=== PATIENT | female | born 1950 | race Caucasian/White ===

== ENCOUNTER 2017-04-01 23:29 | Inpatient (IN) | payer MEDICARE, MEDICAID ==
[2017-04-01 23:29] VITALS: BMI 33.6
--- NOTE | 2017-04-02 00:43 | ED PDOC ---
HPI: Skin/Bite Injury Time Seen by Provider: 04/01/17 23:50 Chief Complaint (Nursing): Abnormal Skin Integrity Chief Complaint (Provider): Left forehead and facial rash History Per: Patient History/Exam Limitations: no limitations Onset/Duration Of Symptoms: Days ( 5 days) Location Of Injury: Left: Head (Left forehead rash), Anterior: Face (Facial rash ) Quality Of Symptoms: Painful, Itching, Other (Burning) Additional Complaint(s): Mariama Lea, a 66 year old female, presents to the ED with a rash to the left periorbital region and left forehead. The patient describes the rash as having a painful, itchy, burning sensation. She states that she initially thought it may have been an allergic reaction, but the worsening nature of discomfort caused her to come into the ER. Patient denies associated headache, nausea, shortness of breath and chest pain. Also denies changes in vision. Past Medical History Reviewed: Historical Data, Nursing Documentation, Vital Signs Vital Signs: Last Vital Signs Temp 98.3 F 04/02/17 03:30 Pulse 82 04/02/17 03:30 Resp 19 04/02/17 03:30 BP 146/76 04/02/17 03:30 Pulse Ox 99 04/02/17 04:22 - Medical History PMH: Diabetes, Fractures (right arm), HTN, Hypercholesterolemia Denies: Colonic Polyps, Chronic Kidney Disease Comment Only: Cardia Arrhythmia (OCASSIONAL PALPITATIONS) - Surgical History Other surgeries: Left elbow surgery, Breast Cyst removal surgery, Foot surgery. - Family History Family History: States: Unknown Family Hx - Home Medications Home Medications: Ambulatory Orders Medication Instructions Recorded Aspirin [Ecotrin] 81 mg PO DAILY 04/02/17 Empagliflozin [Jardiance] 10 mg PO DAILY 04/02/17 GlipiZIDE [Glucotrol] 5 mg PO DAILY 04/02/17 Linagliptin [Tradjenta] 5 mg PO DAILY 04/02/17 Linagliptin/Metformin HCl 1 tab PO DAILY 04/02/17 [Jentadueto Xr 5 mg-1,000 mg Tb] Losartan/Hydrochlorothiazide 1 tab PO DAILY 04/02/17 [Losartan-Hctz 100-12.5 mg Tab] Metoprolol Succinate [Metoprolol 200 mg PO DAILY 04/02/17 Succinate] Simvastatin [Simvastatin] 10 mg PO DAILY 04/02/17 - Allergies Allergies/Adverse Reactions: Allergies Allergy/AdvReac Type Severity Reaction Status Date / Time No Known Allergies Allergy Verified 01/11/16 08:09 Review of Systems ROS Statement: Except As Marked, All Systems Reviewed And Found Negative Eyes: Negative for: Vision Change Cardiovascular: Negative for: Chest Pain Respiratory: Negative for: Shortness of Breath Gastrointestinal: Negative for: Nausea, Vomiting Skin: Positive for: Rash (Left periorbital and left forehead rash(describes as pain, burning, itching)) Physical Exam - Reviewed Nursing Documentation Reviewed: Yes Vital Signs Reviewed: Yes - Physical Exam Appears: Positive for: Non-toxic, No Acute Distress Head Exam: Positive for: ATRAUMATIC, NORMAL INSPECTION (left foreheard erythema with small vesicles, C2 distribution.), NORMOCEPHALIC Skin: Positive for: Normal Color, Warm, Dry Eye Exam: Positive for: Normal appearance, EOMI, PERRL, Other (left periorital erythema with small vesicles, C2 distribution.) ENT: Positive for: Normal ENT Inspection Neck: Positive for: Normal, Painless ROM, Supple Cardiovascular/Chest: Positive for: Regular Rate, Rhythm, Chest Non Tender. Negative for: Tachycardia Respiratory: Positive for: Normal Breath Sounds. Negative for: Wheezing, Respiratory Distress Gastrointestinal/Abdominal: Positive for: Normal Exam, Soft. Negative for: Tenderness Back: Positive for: Normal Inspection. Negative for: L CVA Tenderness, R CVA Tenderness Extremity: Positive for: Normal ROM. Negative for: Tenderness, Deformity, Swelling Neurologic/Psych: Positive for: Alert, Oriented - Laboratory Results Result Diagrams: 04/02/17 00:40 04/02/17 00:40 - ECG O2 Sat by Pulse Oximetry: 99 (RA) Pulse Ox Interpretation: Normal Medical Decision Making Medical Decision Makin:50 Initial impression: 66 year old female presenting with shingles. Initial plan: * EKG * CMP * Lactic acid * CBC * PTT * Prothrombin time * CXR * Morphine 2mg IVP * Zovirax 500mg inj * Blood culture * Isolation type Q12 * Admit to hospital 0014 Fluorescein stain applied to left eye, no dendritic lesions observed. 0014 Patient will be admitted due to possible ocular/ ophthalmic involvement. Case was discussed with Dr. funes admitting hospitalist for Dr. Peralta - Scribe Attestation Documented by Jenn Arciniega acting as a scribe for Aquilino Rosales MD. Provider Attestation All medical record entries made by the Scribe were at my direction and personally dictated by me. I have reviewed the chart and agree that the record accurately reflects my personal performance of the history, physical exam, medical decision making, and the department course for this patient. I have also personally directed, reviewed, and agree with the discharge instructions and disposition Disposition - Clinical Impression Clinical Impression: Herpes zoster - Patient ED Disposition Is Patient to be Admitted: Yes Discussed With : Juli Funes Counseled Patient/Family Regarding: Studies Performed, Diagnosis - Disposition Disposition Time: 00:14 Condition: FAIR - Pt Status Changed To: Hospital Disposition Of: Inpatient - Admit Certification Admit to Inpatient:: After my assessment, the patient will require hospitalization for at least two midnights. This is because of the severity of symptoms shown, intensity of services needed, and/or the medical risk in this patient being treated as an outpatient.
[2017-04-02 00:51] LABS: BASO % 0.6 % (0.0-2.0); EOS # 0.1 K/uL (0.0-0.7); EOS % 1.4 % (0.0-4.0); HEMATOCRIT 39.8 % (34.0-47.0); LYMPH # 1.3 K/uL (1.0-4.3); LYMPH % 21.2 % (20.0-40.0); MEAN CELL VOLUME 92.3 fl (81.0-99.0); MEAN CORPUSCULAR HEMOGLOBIN 30.3 pg (27.0-31.0); MEAN CORPUSCULAR HGB CONC 32.8 g/dL (33.0-37.0); MEAN PLATELET VOLUME 8.6 fl (7.2-11.7); MONO # 0.6 K/uL (0.0-0.8); MONO % 8.9 % (0.0-10.0); NEUT # 4.2 K/uL (1.8-7.0); NEUT % 67.9 % (50.0-75.0); NRBC % 0.1 % (0.0-0.0); RED CELL DISTRIBUTION WIDTH 13.6 % (11.5-14.5); WHITE BLOOD COUNT 6.2 K/uL (4.8-10.8)
[2017-04-02 01:01] LABS: ALB/GLOB RATIO 1.1 (1.0-2.1); ALKALINE PHOSPHATASE 92 U/L (38-126); ALT/SGPT 25 U/L (9-52); AST/SGOT 21 U/L (14-36); BILIRUBIN,TOTAL 0.3 mg/dl (0.2-1.3); BLOOD UREA NITROGEN 21 mg/dl (7-17); CALCIUM 9.1 mg/dL (8.4-10.2); CARBON DIOXIDE 29 mmol/L (22-30); CHLORIDE 98 mmol/L (98-107); GFR AFRICAN-AMERICAN > 60; GLUCOSE,RANDOM 262 mg/dL (65-105); POTASSIUM 4.1 MMOL/L (3.6-5.0); SODIUM 137 mmol/l (132-148); TOTAL PROTEIN 8.2 G/DL (6.3-8.2)
[2017-04-02 01:03] LABS: PARTIAL THROMBOPLASTIN TIME 27.6 SECONDS (23.3-32.5)
--- NOTE | 2017-04-02 01:31 | CP.PCM.HP ---
History of Present Illness - History of Present Illness History of Present Illness: CC: Facial/periorbital shingles HPI: This is a 66 y/o female with MHx significant for DM2, HTN, HLD among other conditions who comes in essentially with L facial (Perorbital/forehead) shingles. It has been there for several days, she initially thought it was an allergy, but it did not improve. There is pain/itching. Nothing makes it better. Her vision is not affected. She denies any large amount of purulence or drainage in the area. She does have a RAMSEY on L side of head. ROS: 14 systems reviewed, negative other than HPI MHx: DM2, HTN, HLD SHx: L elbow surgery, foot surgery, breast cyst surgery Allergies: NKDA Medications: as per med rec Family Hx: no relevant findings Social Hx: no significant EtOH or tobacco Surrogate Dec Mkr: daughter, info on chart Present on Admission - Present on Admission Any Indicators Present on Admission: No Past Patient History - Past Medical History & Family History Past Medical History?: Yes - Past Social History Smoking Status: Never Smoked - CARDIAC Hx Cardia Arrhythmia: (OCASSIONAL PALPITATIONS) Hx Hypercholesterolemia: Yes Hx Hypertension: Yes - PULMONARY Hx Respiratory Disorders: No - NEUROLOGICAL Hx Neurological Disorder: No - HEENT Hx HEENT Problems: Yes - RENAL Hx Chronic Kidney Disease: No - ENDOCRINE/METABOLIC Hx Endocrine Disorders: Yes Hx Diabetes Mellitus Type 2: Yes - HEMATOLOGICAL/ONCOLOGICAL Hx Blood Disorders: No - INTEGUMENTARY Hx Dermatological Problems: No - MUSCULOSKELETAL/RHEUMATOLOGICAL Hx Fractures: Yes (right arm) - GASTROINTESTINAL Hx Gastrointestinal Disorders: No - GENITOURINARY/GYNECOLOGICAL Hx Genitourinary Disorders: No - PSYCHIATRIC Hx Psychophysiologic Disorder: No Hx Substance Use: No - SURGICAL HISTORY Hx Surgeries: Yes Hx Open Reduction Internal Fixation: Yes (right arm) Hx Tubal Ligation: Yes Other/Comment: repair right arm fx; RIGHT FOOT 5TH TOE; CYST REMOVED RIGHT BREAST - ANESTHESIA Hx Anesthesia: Yes Hx Anesthesia Reactions: No Hx Malignant Hyperthermia: No Meds Allergies/Adverse Reactions: Allergies Allergy/AdvReac Type Severity Reaction Status Date / Time No Known Allergies Allergy Verified 01/11/16 08:09 Physical Exam - Constitutional Appears: No Acute Distress - Head Exam Head Exam: ATRAUMATIC, NORMOCEPHALIC Additional comments: Rash on L face, dermatomal distribution - Eye Exam Eye Exam: EOMI, PERRL - ENT Exam ENT Exam: Mucous Membranes Moist - Neck Exam Neck exam: Positive for: Full Rom - Respiratory Exam Respiratory Exam: Clear to Auscultation Bilateral, NORMAL BREATHING PATTERN - Cardiovascular Exam Cardiovascular Exam: REGULAR RHYTHM, +S1, +S2 - GI/Abdominal Exam GI & Abdominal Exam: Normal Bowel Sounds, Soft - Extremities Exam Extremities exam: Positive for: full ROM, normal inspection - Neurological Exam Neurological exam: Alert, CN II-XII Intact, Oriented x3 - Psychiatric Exam Psychiatric exam: Normal Affect, Normal Mood - Skin Skin Exam: Dry, Warm Results - Vital Signs Recent Vital Signs: Last Vital Signs Temp 98.9 F 04/01/17 23:34 Pulse 90 04/01/17 23:34 Resp 18 04/01/17 23:34 BP 168/66 H 04/01/17 23:34 Pulse Ox 99 04/02/17 01:20 - Labs Result Diagrams: 04/02/17 00:40 04/02/17 00:40 Labs: Laboratory Results - last 24 hr 04/02/17 04/02/17 04/02/17 00:40 00:40 00:40 WBC 6.2 D RBC 4.31 Hgb 13.1 Hct 39.8 MCV 92.3 MCH 30.3 MCHC 32.8 L RDW 13.6 Plt Count 214 MPV 8.6 Neut % (Auto) 67.9 Lymph % (Auto) 21.2 Leslie % (Auto) 8.9 Eos % (Auto) 1.4 Baso % (Auto) 0.6 Neut # 4.2 Lymph # 1.3 Leslie # 0.6 Eos # 0.1 Baso # 0.0 PT 10.9 INR 1.05 APTT 27.6 Sodium 137 Potassium 4.1 Chloride 98 Carbon Dioxide 29 Anion Gap 14 BUN 21 H Creatinine 1.0 Est GFR ( Amer) > 60 Est GFR (Non-Af Amer) 55 Random Glucose 262 H Lactic Acid Calcium 9.1 Total Bilirubin 0.3 AST 21 ALT 25 Alkaline Phosphatase 92 Total Protein 8.2 Albumin 4.3 Globulin 3.9 Albumin/Globulin Ratio 1.1 04/02/17 00:40 WBC RBC Hgb Hct MCV MCH MCHC RDW Plt Count MPV Neut % (Auto) Lymph % (Auto) Leslie % (Auto) Eos % (Auto) Baso % (Auto) Neut # Lymph # Leslie # Eos # Baso # PT INR APTT Sodium Potassium Chloride Carbon Dioxide Anion Gap BUN Creatinine Est GFR ( Amer) Est GFR (Non-Af Amer) Random Glucose Lactic Acid 1.3 Calcium Total Bilirubin AST ALT Alkaline Phosphatase Total Protein Albumin Globulin Albumin/Globulin Ratio Assessment & Plan (1) Shingles rash Status: Acute (2) DM2 (diabetes mellitus, type 2) Assessment and Plan: 66 y/o female with shingles involving face and with close proximity to eye. 1) Facial shingles -Acyclovir IV as ordered in ER -Rec'd one dose of vanco in ER to cover for any superinfection; will reassess before continuing this 2) DM2 -- continue home medications, DM2 diet, accuchecks, SSI 3) DVT PPx -- SQ Lovenox Status: Acute (3) DVT prophylaxis Status: Acute
[2017-04-02] MEDS: Insulin Lispro (humaLOG) 100 Units/ml Inj SC SCH ×4 (07:30→21:49)
[2017-04-02 07:31] LABS: BASO % 0.6 % (0.0-2.0); EOS # 0.1 K/uL (0.0-0.7); EOS % 2.3 % (0.0-4.0); HEMATOCRIT 39.3 % (34.0-47.0); LYMPH # 1.5 K/uL (1.0-4.3); LYMPH % 26.6 % (20.0-40.0); MEAN CELL VOLUME 91.8 fl (81.0-99.0); MEAN CORPUSCULAR HEMOGLOBIN 30.4 pg (27.0-31.0); MEAN CORPUSCULAR HGB CONC 33.1 g/dL (33.0-37.0); MEAN PLATELET VOLUME 8.5 fl (7.2-11.7); MONO # 0.7 K/uL (0.0-0.8); MONO % 11.6 % (0.0-10.0); NEUT # 3.4 K/uL (1.8-7.0); NEUT % 58.9 % (50.0-75.0); NRBC % 0.1 % (0.0-0.0); RED CELL DISTRIBUTION WIDTH 13.6 % (11.5-14.5); WHITE BLOOD COUNT 5.8 K/uL (4.8-10.8)
[2017-04-02 07:54] LABS: BLOOD UREA NITROGEN 19 mg/dl (7-17); CALCIUM 8.8 mg/dL (8.4-10.2); CARBON DIOXIDE 26 mmol/L (22-30); CHLORIDE 103 mmol/L (98-107); GFR AFRICAN-AMERICAN > 60; GLUCOSE,RANDOM 130 mg/dL (65-105); POTASSIUM 4.2 MMOL/L (3.6-5.0); SODIUM 139 mmol/l (132-148)
--- NOTE | 2017-04-02 07:59 | CARD ---
APPROVED REPORT EKG Measurement Heart [id number] <Conclusion> Sinus rhythm with occasional premature ventricular complexes Nonspecific T wave abnormality Abnormal ECG
[2017-04-02 08:38] VITALS: RESP 20
[2017-04-02] MEDS: Enoxaparin 40 mg Syringe SC SCH (08:59)
[2017-04-02] MEDS ORDERED: Patient's Own Med (Losartan/Hydrochlorothiazide [Losartan-Hctz 100-12.5 Mg Tab] 1 TAB) PO SCH (09:00)
[2017-04-02] MEDS: Metoprolol Succinate 100 mg XL Tab PO SCH (09:00)
[2017-04-02] MEDS ORDERED: METOPROLOL SUCCINATE 200 MG PO SCH (09:00)
[2017-04-02] MEDS: Pravastatin Sodium 20 MG TAB PO SCH (09:01)
[2017-04-02] MEDS: Oxycodone/Acetaminophen 5/325 mg Tab PO PRN ×3 (09:03→21:47)
--- NOTE | 2017-04-02 10:51 | CP.PCM.CON ---
History of Present Illness - History of Present Illness History of Present Illness: 66 year old female, presents to the ED with a rash to the left periorbital region and left forehead. The patient describes the rash as having a painful, itchy, burning sensation. She states that she initially thought it may have been an allergic reaction, but the worsening nature of discomfort caused her to come into the ER. Patient denies associated headache, nausea, shortness of breath and chest pain. Also denies changes in vision. NO EVIDENCE OF OPTIC NEURITIS, CORNEAL INVOLVEMENT AT THIS TIME CONSIDER OPHTHALMOLOGY EVAL CONT IV THEN PO ACYCLOVIR/ HYDRATION WILL NEED PAIN MANAGEMENT EVAL - Medical History PMH: Diabetes, Fractures (right arm), HTN, Hypercholesterolemia Denies: Colonic Polyps, Chronic Kidney Disease Comment Only: Cardia Arrhythmia (OCASSIONAL PALPITATIONS) Review of Systems - Constitutional Constitutional: As Per HPI - EENT Eyes: As Per HPI Ears: absent: As Per HPI, Decreased Hearing, Ear Discharge, Ear Pain, Tinnitus, Abnormal Hearing, Disequilibrium, Dizziness, Other Nose/Mouth/Throat: absent: As Per HPI, Epistaxis, Nasal Congestion, Nasal Discharge, Nasal Obstruction, Nasal Trauma, Nose Pain, Post Nasal Drip, Sinus Pain, Sinus Pressure, Bleeding Gums, Change in Voice, Dental Pain, Dry Mouth, Dysphagia, Halitosis, Hoarsness, Lip Swelling, Mouth Lesions, Mouth Pain, Odynophagia, Sore Throat, Throat Swelling, Tongue Swelling, Facial Pain, Neck Pain, Neck Mass, Other - Breasts Breasts: absent: As Per HPI, Change in Shape, Mass, Pain, Nipple Discharge, Nipple Inversion, Skin Changes, Swelling, Other - Cardiovascular Cardiovascular: absent: As Per HPI, Acrocyanosis, Chest Pain, Chest Pain at Rest , Chest Pain with Activity, Claudication, Diaphoresis, Dyspnea, Dyspnea on Exertion, Edema, Irregular Heart Rhythm, Pain Radiating to Arm/Neck/Jaw, Leg Edema, Leg Ulcers, Lightheadedness, Orthopnea, Palpitations, Paroxysmal Nocturnal Dyspnea, Pedal Edema, Radiating Pain, Rapid Heart Rate, Slow Heart Rate, Syncope, Other - Respiratory Respiratory: absent: As Per HPI, Cough, Dyspnea, Hemoptysis, Dyspnea on Exertion , Wheezing, Snoring, Stridor, Pain on Inspiration, Chest Congestion, Excessive Mucous Production, Change in Mucous Color, Pain with Coughing, Other - Gastrointestinal Gastrointestinal: absent: As Per HPI, Abdominal Pain, Belching, Bloating, Change in Bowel Habits, Change in Stool Character, Coffee Ground Emesis, Constipation, Cramping, Diarrhea, Dyspepsia, Dysphagia, Early Satiety, Excessive Flatus, Fecal Incontinence, Heartburn, Hematemesis, Hematochezia, Loose Stools, Melena, Nausea, Odynophagia, Temesmus, Vomiting, Other - Genitourinary Genitourinary: absent: As Per HPI, Change in Urinary Stream, Difficulty Urinating, Dysuria, Flank Pain, Hematuria, Pyuria, Nocturia, Urinary Incontinence, Urinary Frequency, Urinary Hesitance, Urinary Urgency, Voiding Freq/Small Amts, Freq UTI, Hx Renal/Bladder Calculi, Hx /Renal Surgery, Bladder Distension, Other - Reproductive: Female Reproductive:Female: absent: As Per HPI, Amenorrhea, Amenorrhea/ Control, Currently Menstual, Cycle <21 Days, Cycle >35 Days, Cycle Variable, Menses 1-7 Days, Menses >/= 8 Days, Menses Variable, Cycle > 4 Weeks Between, No Menses for 6 Months, Heavy Menses, Light Menses, Normal Menses, Spotting Between Cycles , S/P Hysterectomy, Menopausal, Post Menopausal, Premenarche, Abnormal Vaginal Bleeding, Dysmenorrhea, Dyspareunia, Genital Lesions, Genital Pruritis, Pelvic Pain, Prolapse Symptoms, Sexual Dysfunction, Vaginal Discharge, Vaginal Dryness , Vaginal Odor, Vaginal Pruritis, Other - Menstruation Menstruation: absent: As Per HPI, Amenorrhea, Amenorrhea/ Control, Currently Menstual, Cycle <21 Days, Cycle >35 Days, Cycle Variable, Menses 1-7 Days, Menses >/= 8 Days, Menses Variable, Cycle > 4 Weeks Between, No Menses for 6 Months, Heavy Menses, Light Menses, Normal Menses, Spotting Between Cycles , S/P Hysterectomy, Menopausal, Post Menopausal, Premenarche, Abnormal Vaginal Bleeding, Dysmenorrhea, Other - Musculoskeletal Musculoskeletal: absent: As Per HPI, Abnormal Gait, Arthralgias, Atrophy, Back Pain, Deformity, Joint Swelling, Limited Range of Motion, Loss of Height, Muscle Cramps, Muscle Weakness, Myalgias, Neck Pain, Numbness, Radiating Pain into Limb, Stiffness, Tingling, Other - Integumentary Integumentary: As Per HPI - Neurological Neurological: absent: As Per HPI, Abnormal Gait, Abnormal Hearing, Abnormal Movements, Abnormal Speech, Behavioral Changes, Burning Sensations, Confusion, Convulsions, Disequilibrium, Dizziness, Numbness, Focal Weakness, Frequent Falls , Headaches, Lack of Coordination, Loss of Vision, Memory Loss, Paresthesias, Radicular Pain, Restless Legs, Sensory Deficit, Syncope, Tingling, Tremor, Vertigo, Weakness, Other Visual Disturbances, Other - Psychiatric Psychiatric: absent: As Per HPI, Abnormal Sleep Pattern, Anhedonia, Anxiety, Auditory Hallucinations, Behavioral Changes, Change in Appetite, Change in Libido, Confusion, Depression, Difficulty Concentrating, Hallucinations, Homicidal Ideation, Hopelessness, Irritability, Memory Loss, Mood Swings, Panic Attacks, Paranoia, Suicidal Ideation, Visual Hallucinations, Tactile Hallucinations, Other - Endocrine Endocrine: absent: As Per HPI, Change in Body Appearance, Change in Libido, Cold Intolorance, Deepening of Voice, Excessive Sweating, Fatigue, Flushing, Heat Intolorance, Increase in Ring/Shoe/Hat Size, Palpitations, Polydipsia, Polyphagia, Polyuria, Other - Hematologic/Lymphatic Hematologic: absent: As Per HPI, Easy Bleeding, Easy Bruising, Lymphadenopathy, Other Past Patient History - Past Medical History & Family History Past Medical History?: Yes - Past Social History Smoking Status: Never Smoked - CARDIAC Hx Cardia Arrhythmia: (OCASSIONAL PALPITATIONS) Hx Hypercholesterolemia: Yes Hx Hypertension: Yes - PULMONARY Hx Respiratory Disorders: No - NEUROLOGICAL Hx Neurological Disorder: No - HEENT Hx HEENT Problems: No - RENAL Hx Chronic Kidney Disease: No - ENDOCRINE/METABOLIC Hx Endocrine Disorders: Yes Hx Diabetes Mellitus Type 2: Yes - HEMATOLOGICAL/ONCOLOGICAL Hx Blood Disorders: No - INTEGUMENTARY Hx Dermatological Problems: No - MUSCULOSKELETAL/RHEUMATOLOGICAL Hx Fractures: Yes (right arm) - GASTROINTESTINAL Hx Gastrointestinal Disorders: No - GENITOURINARY/GYNECOLOGICAL Hx Genitourinary Disorders: No - PSYCHIATRIC Hx Psychophysiologic Disorder: No Hx Substance Use: No - SURGICAL HISTORY Hx Surgeries: Yes Hx Open Reduction Internal Fixation: Yes (right arm) Hx Tubal Ligation: Yes Other/Comment: repair right arm fx; RIGHT FOOT 5TH TOE; CYST REMOVED RIGHT BREAST - ANESTHESIA Hx Anesthesia: Yes Hx Anesthesia Reactions: No Hx Malignant Hyperthermia: No Has any member of the family had a problem w/ anesthesia?: No Meds Home Medications: Home Medication List Medication Instructions Recorded Confirmed Type Gabapentin [Neurontin] 100 mg PO Q12 #30 capsule 04/03/17 Rx Allergies/Adverse Reactions: Allergies Allergy/AdvReac Type Severity Reaction Status Date / Time No Known Allergies Allergy Verified 01/11/16 08:09 - Medications Medications: Current Medications Acetaminophen (Tylenol 325mg Tab) 650 mg PO Q6 PRN PRN Reason: Pain, Mild (1-3) Aspirin (Ecotrin) 81 mg PO DAILY [facility] Last Admin: 04/02/17 09:01 Dose: 81 mg Enoxaparin Sodium (Lovenox) 40 mg SC DAILY [facility] PRN Reason: Protocol Last Admin: 04/02/17 08:59 Dose: 40 mg Glipizide (Glucotrol) 5 mg PO DAILY [facility] Last Admin: 04/02/17 09:01 Dose: 5 mg Home Med (Empagliflozin [Jardiance]) 10 mg PO DAILY [facility] Hydrochlorothiazide (Microzide) 12.5 mg PO DAILY [facility] Last Admin: 04/02/17 09:00 Dose: 12.5 mg Acyclovir 700 mg/ Sodium (Chloride) 100 mls @ 100 mls/hr IV Q8 [facility] Last Admin: 04/02/17 09:01 Dose: 100 mls/hr Insulin Human Lispro (Humalog) 0 units SC ACHS [facility] PRN Reason: Protocol Last Admin: 04/02/17 07:30 Dose: Not Given Losartan Potassium (Cozaar) 100 mg PO DAILY [facility] Last Admin: 04/02/17 08:59 Dose: 100 mg Metformin HCl (Glucophage) 500 mg PO BID [facility] Last Admin: 04/02/17 09:01 Dose: 500 mg Metoprolol Succinate (Toprol Xl) 200 mg PO DAILY [facility] Last Admin: 04/02/17 09:00 Dose: 200 mg Morphine Sulfate (Morphine) 2 mg IVP Q4 PRN PRN Reason: Pain, severe (8-10) Oxycodone/Acetaminophen (Percocet 5/325 Mg Tab) 1 tab PO Q4 PRN PRN Reason: Pain, moderate (4-7) Stop: 04/05/17 01:27 Last Admin: 04/02/17 09:03 Dose: 1 tab Pravastatin Sodium (Pravachol) 20 mg PO DAILY [facility] Last Admin: 04/02/17 09:01 Dose: 20 mg Sitagliptin Phosphate (Januvia) 50 mg PO DAILY [facility] Last Admin: 04/02/17 09:01 Dose: 50 mg Physical Exam - Constitutional Appears: Non-toxic - Head Exam Head Exam: ATRAUMATIC, NORMAL INSPECTION, NORMOCEPHALIC - Eye Exam Eye Exam: EOMI, Periorbital swelling, PERRL. absent: Scleral icterus Additional comments: swelling pain and tenderness without erythema or pus visual acuity preserved - ENT Exam ENT Exam: Mucous Membranes Dry, Normal External Ear Exam, Normal Oropharynx - Neck Exam Neck exam: Negative for: Lymphadenopathy - Respiratory Exam Respiratory Exam: Decreased Breath Sounds, Clear to Auscultation Bilateral - Cardiovascular Exam Cardiovascular Exam: REGULAR RHYTHM, +S1, +S2 - GI/Abdominal Exam GI & Abdominal Exam: Diminished Bowel Sounds, Soft. absent: Tenderness - Rectal Exam Rectal Exam: Deferred - Exam Exam: NORMAL INSPECTION - Extremities Exam Extremities exam: Negative for: calf tenderness, pedal edema - Back Exam Back exam: absent: CVA tenderness (L), CVA tenderness (R) - Neurological Exam Neurological exam: Alert, CN II-XII Intact, Oriented x3, Reflexes Normal - Psychiatric Exam Psychiatric exam: Normal Mood Results - Vital Signs Recent Vital Signs: Last Vital Signs Temp 98.7 F 04/02/17 08:37 Pulse 68 04/02/17 09:00 Resp 20 04/02/17 08:37 BP 138/75 04/02/17 09:00 Pulse Ox 98 04/02/17 08:37 - Labs Result Diagrams: 04/03/17 06:10 04/03/17 06:10 Labs: Laboratory Results - last 24 hr 04/02/17 04/02/17 04/02/17 00:40 00:40 00:40 WBC 6.2 D RBC 4.31 Hgb 13.1 Hct 39.8 MCV 92.3 MCH 30.3 MCHC 32.8 L RDW 13.6 Plt Count 214 MPV 8.6 Neut % (Auto) 67.9 Lymph % (Auto) 21.2 Gray % (Auto) 8.9 Eos % (Auto) 1.4 Baso % (Auto) 0.6 Neut # 4.2 Lymph # 1.3 Gray # 0.6 Eos # 0.1 Baso # 0.0 PT 10.9 INR 1.05 APTT 27.6 Sodium 137 Potassium 4.1 Chloride 98 Carbon Dioxide 29 Anion Gap 14 BUN 21 H Creatinine 1.0 Est GFR ( Amer) > 60 Est GFR (Non-Af Amer) 55 POC Glucose (mg/dL) Random Glucose 262 H Lactic Acid Calcium 9.1 Total Bilirubin 0.3 AST 21 ALT 25 Alkaline Phosphatase 92 Total Protein 8.2 Albumin 4.3 Globulin 3.9 Albumin/Globulin Ratio 1.1 04/02/17 04/02/17 04/02/17 00:40 05:39 06:50 WBC 5.8 RBC 4.28 Hgb 13.0 Hct 39.3 MCV 91.8 MCH 30.4 MCHC 33.1 RDW 13.6 Plt Count 205 MPV 8.5 Neut % (Auto) 58.9 Lymph % (Auto) 26.6 Gray % (Auto) 11.6 H Eos % (Auto) 2.3 Baso % (Auto) 0.6 Neut # 3.4 Lymph # 1.5 Gray # 0.7 Eos # 0.1 Baso # 0.0 PT INR APTT Sodium Potassium Chloride Carbon Dioxide Anion Gap BUN Creatinine Est GFR ( Amer) Est GFR (Non-Af Amer) POC Glucose (mg/dL) 134 H Random Glucose Lactic Acid 1.3 Calcium Total Bilirubin AST ALT Alkaline Phosphatase Total Protein Albumin Globulin Albumin/Globulin Ratio 04/02/17 06:50 WBC RBC Hgb Hct MCV MCH MCHC RDW Plt Count MPV Neut % (Auto) Lymph % (Auto) Gray % (Auto) Eos % (Auto) Baso % (Auto) Neut # Lymph # Gray # Eos # Baso # PT INR APTT Sodium 139 Potassium 4.2 Chloride 103 Carbon Dioxide 26 Anion Gap 14 BUN 19 H Creatinine 0.7 Est GFR ( Amer) > 60 Est GFR (Non-Af Amer) > 60 POC Glucose (mg/dL) Random Glucose 130 H Lactic Acid Calcium 8.8 Total Bilirubin AST ALT Alkaline Phosphatase Total Protein Albumin Globulin Albumin/Globulin Ratio Assessment & Plan (1) DM2 (diabetes mellitus, type 2) Status: Acute (2) Herpes zoster Status: Acute (3) Shingles rash Status: Acute - Assessment and Plan (Free Text) Assessment: cont iv rx for now po conversion to acyclovir 800mg po tid x 10 days
[2017-04-02] MEDS: Sodium Chloride 0.9% 1,000 ML IV SCH (12:08)
--- NOTE | 2017-04-02 14:19 | RAD ---
HISTORY: admit COMPARISON: 08/31/2008 FINDINGS: LUNGS: The lungs are clear. PLEURA: No significant pleural effusion identified, no pneumothorax apparent. CARDIOVASCULAR: Normal. OSSEOUS STRUCTURES: No significant abnormalities. VISUALIZED UPPER ABDOMEN: Normal. OTHER FINDINGS: There is chronic elevation of the right hemidiaphragm. IMPRESSION: No active pulmonary disease.
[2017-04-03] MEDS: Sodium Chloride 0.9% 1,000 ML IV SCH ×2 (01:00→04:32)
[2017-04-03] MEDS: Insulin Lispro (humaLOG) 100 Units/ml Inj SC SCH ×2 (07:09→12:15)
[2017-04-03 07:23] LABS: BASO % 0.6 % (0.0-2.0); EOS # 0.1 K/uL (0.0-0.7); EOS % 0.9 % (0.0-4.0); HEMATOCRIT 38.7 % (34.0-47.0); LYMPH # 1.9 K/uL (1.0-4.3); LYMPH % 23.8 % (20.0-40.0); MEAN CELL VOLUME 91.4 fl (81.0-99.0); MEAN CORPUSCULAR HEMOGLOBIN 30.1 pg (27.0-31.0); MEAN CORPUSCULAR HGB CONC 32.9 g/dL (33.0-37.0); MEAN PLATELET VOLUME 8.7 fl (7.2-11.7); MONO # 0.7 K/uL (0.0-0.8); MONO % 9.1 % (0.0-10.0); NEUT # 5.3 K/uL (1.8-7.0); NEUT % 65.6 % (50.0-75.0); NRBC % 0.3 % (0.0-0.0); RED CELL DISTRIBUTION WIDTH 13.3 % (11.5-14.5); WHITE BLOOD COUNT 8.1 K/uL (4.8-10.8)
[2017-04-03 07:41] LABS: ALB/GLOB RATIO 1.1 (1.0-2.1); ALKALINE PHOSPHATASE 80 U/L (38-126); ALT/SGPT 29 U/L (9-52); AST/SGOT 18 U/L (14-36); BILIRUBIN,TOTAL 0.3 mg/dl (0.2-1.3); BLOOD UREA NITROGEN 14 mg/dl (7-17); CALCIUM 8.6 mg/dL (8.4-10.2); CARBON DIOXIDE 25 mmol/L (22-30); CHLORIDE 101 mmol/L (98-107); GFR AFRICAN-AMERICAN > 60; GLUCOSE,RANDOM 102 mg/dL (65-105); POTASSIUM 3.9 MMOL/L (3.6-5.0); SODIUM 137 mmol/l (132-148); TOTAL PROTEIN 7.5 G/DL (6.3-8.2)
[2017-04-03 08:27] VITALS: PULSE 77; TEMP 99.6; O2SAT 96
[2017-04-03] MEDS: Metoprolol Succinate 100 mg XL Tab PO SCH (09:33)
[2017-04-03 09:34] VITALS: BP 153/78
[2017-04-03] MEDS: Pravastatin Sodium 20 MG TAB PO SCH (09:34)
[2017-04-03] MEDS: Enoxaparin 40 mg Syringe SC SCH (09:35)
--- NOTE | 2017-04-03 13:47 | CP.PCM.PN ---
Subjective - Date & Time of Evaluation Date of Evaluation: 04/03/17 Time of Evaluation: 09:00 - Subjective Subjective: NO FEVER C/O PAIN Objective - Vital Signs/Intake and Output Vital Signs (last 24 hours): Temp Pulse Resp BP Pulse Ox 99.6 F 77 20 153/78 H 96 04/03/17 08:27 04/03/17 09:33 04/03/17 08:27 04/03/17 09:33 04/03/17 08:27 Intake and Output: 04/03/17 04/03/17 06:59 18:59 Intake Total 1180 440 Balance 1180 440 - Medications Medications: Current Medications Acetaminophen (Tylenol 325mg Tab) 650 mg PO Q6 PRN PRN Reason: Pain, Mild (1-3) Aspirin (Ecotrin) 81 mg PO DAILY [facility] Last Admin: 04/03/17 09:34 Dose: 81 mg Enoxaparin Sodium (Lovenox) 40 mg SC DAILY [facility] PRN Reason: Protocol Last Admin: 04/03/17 09:35 Dose: 40 mg Gabapentin (Neurontin) 100 mg PO Q12 [facility] Last Admin: 04/03/17 09:34 Dose: 100 mg Glipizide (Glucotrol) 5 mg PO DAILY [facility] Last Admin: 04/03/17 09:34 Dose: 5 mg Home Med (Empagliflozin [Jardiance]) 10 mg PO DAILY [facility] Acyclovir 700 mg/ Sodium (Chloride) 100 mls @ 100 mls/hr IV Q8 [facility] Last Admin: 04/03/17 09:33 Dose: 100 mls/hr Insulin Human Lispro (Humalog) 0 units SC ACHS [facility] PRN Reason: Protocol Last Admin: 04/03/17 12:15 Dose: 2 unit Losartan Potassium (Cozaar) 100 mg PO DAILY [facility] Last Admin: 04/03/17 09:33 Dose: 100 mg Metformin HCl (Glucophage) 500 mg PO BID [facility] Last Admin: 04/03/17 09:34 Dose: 500 mg Metoprolol Succinate (Toprol Xl) 200 mg PO DAILY [facility] Last Admin: 04/03/17 09:33 Dose: 200 mg Morphine Sulfate (Morphine) 2 mg IVP Q4 PRN PRN Reason: Pain, severe (8-10) Oxycodone/Acetaminophen (Percocet 5/325 Mg Tab) 1 tab PO Q4 PRN PRN Reason: Pain, moderate (4-7) Stop: 04/05/17 01:27 Last Admin: 04/02/17 21:47 Dose: 1 tab Pravastatin Sodium (Pravachol) 20 mg PO DAILY [facility] Last Admin: 04/03/17 09:34 Dose: 20 mg Sitagliptin Phosphate (Januvia) 50 mg PO DAILY [facility] Last Admin: 04/03/17 09:34 Dose: 50 mg - Labs Labs: 04/03/17 06:10 04/03/17 06:10 PT 10.9 SECONDS (9.6-11.2) 04/02/17 00:40 INR 1.05 (0.92-1.08) 04/02/17 00:40 APTT 27.6 SECONDS (23.3-32.5) 04/02/17 00:40 - Constitutional Appears: Non-toxic - Head Exam Head Exam: NORMOCEPHALIC - Eye Exam Eye Exam: PERRL. absent: Scleral icterus - ENT Exam ENT Exam: Mucous Membranes Dry - Neck Exam Neck Exam: absent: Lymphadenopathy - Respiratory Exam Respiratory Exam: Decreased Breath Sounds - Cardiovascular Exam Cardiovascular Exam: REGULAR RHYTHM - GI/Abdominal Exam GI & Abdominal Exam: Distended, Soft - Rectal Exam Rectal Exam: Deferred - Exam Exam: NORMAL INSPECTION - Extremities Exam Extremities Exam: absent: Pedal Edema - Back Exam Back Exam: absent: CVA tenderness (L), CVA tenderness (R) - Neurological Exam Neurological Exam: Alert, Awake, Oriented x3 - Psychiatric Exam Psychiatric exam: Depressed - Skin Skin Exam: Dry Assessment and Plan (1) DM2 (diabetes mellitus, type 2) Status: Acute (2) Herpes zoster Status: Acute (3) Shingles rash Status: Acute
--- NOTE | 2017-04-03 15:21 | CP.PCM.DIS ---
Provider - Provider Date of Admission: 04/02/17 00:14 Attending physician: Jlui Funes MD Primary care physician: Huber Peralta MD Consults: Infectious disease consult Time Spent in preparation of Discharge (in minutes): 20 Hospital Course - Lab Results Lab Results: Micro Results 04/02/17 00:40 Blood-Venous Blood Culture - Preliminary NO GROWTH AFTER 24 HOURS Most Recent Lab Values WBC 8.1 K/uL (4.8-10.8) 04/03/17 06:10 RBC 4.23 Mil/uL (3.80-5.20) 04/03/17 06:10 Hgb 12.7 g/dL (12.0-16.0) 04/03/17 06:10 Hct 38.7 % (34.0-47.0) 04/03/17 06:10 MCV 91.4 fl (81.0-99.0) 04/03/17 06:10 MCH 30.1 pg (27.0-31.0) 04/03/17 06:10 MCHC 32.9 g/dL (33.0-37.0) L 04/03/17 06:10 RDW 13.3 % (11.5-14.5) 04/03/17 06:10 Plt Count 206 K/uL (130-400) 04/03/17 06:10 MPV 8.7 fl (7.2-11.7) 04/03/17 06:10 Neut % (Auto) 65.6 % (50.0-75.0) 04/03/17 06:10 Lymph % (Auto) 23.8 % (20.0-40.0) 04/03/17 06:10 Gilmer % (Auto) 9.1 % (0.0-10.0) 04/03/17 06:10 Eos % (Auto) 0.9 % (0.0-4.0) 04/03/17 06:10 Baso % (Auto) 0.6 % (0.0-2.0) 04/03/17 06:10 Neut # 5.3 K/uL (1.8-7.0) 04/03/17 06:10 Lymph # 1.9 K/uL (1.0-4.3) 04/03/17 06:10 Gilmer # 0.7 K/uL (0.0-0.8) 04/03/17 06:10 Eos # 0.1 K/uL (0.0-0.7) 04/03/17 06:10 Baso # 0.0 K/uL (0.0-0.2) 04/03/17 06:10 PT 10.9 SECONDS (9.6-11.2) 04/02/17 00:40 INR 1.05 (0.92-1.08) 04/02/17 00:40 APTT 27.6 SECONDS (23.3-32.5) 04/02/17 00:40 Sodium 137 mmol/l (132-148) 04/03/17 06:10 Potassium 3.9 MMOL/L (3.6-5.0) 04/03/17 06:10 Chloride 101 mmol/L (98-107) 04/03/17 06:10 Carbon Dioxide 25 mmol/L (22-30) 04/03/17 06:10 Anion Gap 15 (10-20) 04/03/17 06:10 BUN 14 mg/dl (7-17) 04/03/17 06:10 Creatinine 0.7 mg/dL (0.7-1.2) 04/03/17 06:10 Est GFR ( Amer) > 60 04/03/17 06:10 Est GFR (Non-Af Amer) > 60 04/03/17 06:10 POC Glucose (mg/dL) 157 mg/dL (65-110) H 04/03/17 11:46 Random Glucose 102 mg/dL (65-105) 04/03/17 06:10 Lactic Acid 1.3 MMOL/L (0.7-2.1) 04/02/17 00:40 Calcium 8.6 mg/dL (8.4-10.2) 04/03/17 06:10 Total Bilirubin 0.3 mg/dl (0.2-1.3) 04/03/17 06:10 AST 18 U/L (14-36) 04/03/17 06:10 ALT 29 U/L (9-52) 04/03/17 06:10 Alkaline Phosphatase 80 U/L (38-126) 04/03/17 06:10 Total Protein 7.5 G/DL (6.3-8.2) 04/03/17 06:10 Albumin 3.9 g/dL (3.5-5.0) 04/03/17 06:10 Globulin 3.7 gm/dL (2.2-3.9) 04/03/17 06:10 Albumin/Globulin Ratio 1.1 (1.0-2.1) 04/03/17 06:10 HIV 1&2 Antibody Screen Negative (NEGATIVE) 04/02/17 15:08 - Hospital Course Hospital Course: 66 y/o female with MHx significant for DM2, HTN, HLD among other conditions came in essentially with L facial (Perorbital/forehead) shingles. It has been there for several days, she initially thought it was an allergy, but it did not improve. There is pain/itching. Nothing makes it better. Her vision is not affected. She denies any large amount of purulence or drainage in the area. She does have a RAMSEY on L side of head.No signs of optic neuritis or corneal involvement She wsa admitted in med/surg. started on Acyclovir IV and Gabapentin for pain control.ID was consulted. Placed on airborne isolation. She was given 1 dose of Vanco IV for suspected superimposed skin infectious. Patient clinically stable, pain is more controlled today. Discussed with ID . Will discharge home on PO Acyclovir 800 mg po TID for 7 day sand Gabapentin PO Follow up with PMD Dr. Peralta in 1 week (1) Shingles rash Acute Started Acyclovir PO . Continue 800 mg po TID x 7 days Gabapentin po for neuropathic pain received 1 dose Vanco IV for suspected superimposed skin infectious ID was consulted (2) DM2 (diabetes mellitus, type 2) controlled continue home meds 3. Hypertension Controlled on Losartan and metoprolol 4. Dyslipidemia on Statin 5. DVT PPx -- SQ Lovenox Discharge Exam - Head Exam Head Exam: ATRAUMATIC, NORMOCEPHALIC Additional comments: left periorbital erythemathous rash dry vesicle on top of forehead - Eye Exam Eye Exam: EOMI, PERRL Pupil Exam: NORMAL ACCOMODATION - ENT Exam ENT Exam: Mucous Membranes Moist, Normal Exam - Neck Exam Neck exam: Full Rom, Normal Inspection - Respiratory Exam Respiratory Exam: Clear to PA & Lateral, NORMAL BREATHING PATTERN. absent: Rales, Rhonchi, Wheezes - Cardiovascular Exam Cardiovascular Exam: REGULAR RHYTHM, RRR, +S1, +S2. absent: JVD - GI/Abdominal Exam GI & Abdominal Exam: Normal Bowel Sounds, Soft. absent: Distended, Guarding, Rebound, Tenderness - Rectal Exam Rectal Exam: Deferred - Extremities Exam Extremities exam: normal capillary refill, normal inspection, pedal pulses present - Back Exam Back exam: NORMAL INSPECTION - Neurological Exam Neurological exam: Alert, CN II-XII Intact, Oriented x3, Reflexes Normal - Psychiatric Exam Psychiatric exam: Normal Affect, Normal Mood - Skin Skin Exam: Dry, Warm Discharge Plan - Discharge Medications Prescriptions: Acyclovir [Zovirax] 800 mg PO TID #21 tablet Gabapentin [Neurontin] 100 mg PO Q12 #30 capsule - Follow Up Plan Condition: STABLE Disposition: HOME/ ROUTINE Patient education suggested?: Yes Instructions: Dora ([facility]) Referrals: Huber Peralta MD [Primary Care Provider] -
== END 2017-04-03 16:20 | disposition home or self-care (01) | DRG 596 ==
LOC: H.ER 23:29 → H.ERHOLD 04-02 00:14 → H.MEDSURG1 04-02 03:39
PROVIDERS: ADMIT Internal Medicine; ATTEND Internal Medicine
DX: B02.9 Zoster without complications (principal); I10 Essential (primary) hypertension; E11.9 Type 2 diabetes mellitus without complications; E78.00 Pure hypercholesterolemia, unspecified; E78.5 Hyperlipidemia, unspecified; Z98.51 Tubal ligation status